=== PATIENT | male | born 1940 | race Caucasian/White ===

== ENCOUNTER → 2021-12-01 | Outpatient (CLI) | payer MEDICARE, OTHER ==
--- NOTE | 2021-12-01 08:58 | Diagnostic Imaging Report ---
INDICATION: Right shoulder pain COMPARISON: None FINDINGS: 3 views of the right shoulder demonstrate minimal to mild degenerative changes of the AC and glenohumeral joint. There is no fracture or dislocation. No osseous lesion. IMPRESSION: Degenerative changes. Dictated by: Dictated on workstation # [id number]
== END ==
LOC: ORTHO 08:08
PROVIDERS: ATTEND Orthopaedic Surgery
DX: M19.011 Primary osteoarthritis, right shoulder (principal)
CPT/HCPCS: 73030; G0463; 99213